=== PATIENT | female | born 1985 | race Caucasian/White ===

== ENCOUNTER 2025-05-20 12:01 | Emergency (ER) | payer BC ==
--- OUTSIDE RECORDS SUMMARY | 2025-05-20 12:07 | XMS REPORT | Continuity of Care Document ---
Author Name Unknown Address [address] [facility] [address] [place] [address] [facility] [place] Address [address] [facility] [place] [address] Care Team Providers Care Thread Laster Name Role Phone Julio JEAN BAPTISTE, Nathan Hernandez Primary Care Physician Megan Arita Attending Clinician Unavailable Arun Slaughter Attending Clinician UnavailMena Camacho Attending Clinician Unavaila Monica Mejía APRN Attending Clinician Unavail able DOLLY GREGORIO Attending Clinician Unavailable Only, Ang Db Test Attending Clinician Unavailabl e Ebrahim [facility] [employer] CONSULTANTDolly Fitzgerald Attending Clinician [phone] MILAGRO IRENE Attending Clinician Unavailable BRIANDA Attending Clinician Unavailab Milagro Dave Attending Clinician [phone] SHAHNAZ VIERA Attending Clinician UnavailShahnaz Whelan Attending Clinician [phone] Nahum Candelaria Attending Clinician + [phone] NAHUM WHEAT Attending Clinician Unavailab Dimas [facility] Attending Clinician UnavailAmy Kurtz MD Attending Clinician [phone] AMY JAMES Attending Clinician Unavailable Doctor Unassigned, [place] Attending Clinician U Mena Garcia Admitting Clinician Unavaila olman LAMAR Admitting Clinician Unavailab le Payers Payer Name Policy Type Policy Number Effective Date Expiration Date Source [place] [address] [id number] [facility] [id number] 2020 00:00:00 Problems Condition Name Condition Details Condition Category Status Onset Date Resolution Date Last Treatment Date Treating Clinician Comments Source Chronic gastric ulcer without hemorrhage AND without perforatio n Chronic Gastric Ulcer without Hemorrhage and without Perforatio n Problem Active 7- 00:00: 00 [facility] Abnormal uterine bleeding Abnormal Uterine Bleeding Problem Active 6-20 00:00: 00 [facility] 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 omatous Stromal Hyperplasi a of Breast Problem Active 6-04 00:00: 00 [facility] Venous embolism Venous Embolism Problem Active 5-23 00:00: 00 [facility] Menorrhagi a Menorrhagi a Problem Active 5-23 00:00: 00 [facility] Inconclusi ve mammograph y finding Inconclusi ve Mammograph y Finding Problem Active 3-27 00:00: 00 [facility] Pelvic and perineal pain Pelvic and Perineal Pain Problem Active 3-27 00:00: 00 [facility] Pain in pelvis Pain in Pelvis Problem Active 3-03 00:00: 00 [facility] Mammograph y abnormal Mammograph y Abnormal Problem Active 9-12 00:00: 00 [facility] Anxiety Anxiety Problem Active 9- 00:00: 00 [facility] Depressive disorder Depressive Disorder Problem Active 9- 00:00: 00 [facility] Hypertensi ve disorder Hypertensi ve Disorder Problem Active 9- 00:00: 00 [facility] Asthma Asthma Problem Active 9- 00:00: 00 [facility] Irritable bowel syndrome Irritable Bowel Syndrome Problem Active 9- 00:00: 00 [facility] Rheumatoid arthritis Rheumatoid Arthritis Problem Active 06-23 00:00: 00 [facility] Fibromyalg ia Fibromyalg ia Problem Active 06-23 00:00: 00 [facility] Polycystic ovary syndrome Polycystic Ovary Syndrome Problem Active 06-23 00:00: 00 [facility] Charles thyroiditi s Charles Thyroiditi s Problem Active 06-23 00:00: 00 [facility] Hyperlipid emia Hyperlipid emia Problem Active 06-23 00:00: 00 [facility] Body mass index 30+ - obesity Body Mass Index 30+ - Obesity Problem Active 06-04 00:00: 00 [facility] Essential hypertensi on Essential Hypertensi on Problem Active 06-04 00:00: 00 [facility] Dysmenorrh ea Dysmenorrh ea Problem Active 06-04 00:00: 00 [facility] Premenstru al dysphoric disorder Premenstru al Dysphoric Disorder Problem Active 06-04 00:00: 00 [facility] Excessive and frequent menstruati on Excessive and Frequent Menstruati on Problem Active 06-04 00:00: 00 [facility] 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 Problem [facility] Altered consciousn ess Transient alteration of awareness Problem [facility] 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 Problem [facility] Occipital neuralgia Occipital neuralgia Problem [facility] Hand joint pain Pain in joints of left hand Problem [facility] [id number] Anemia due to vitamin B12 deficiency , unspecifie d B12 deficiency type Problem [facility] Joint pain Pain in unspecifie d joint Problem [facility] Vitamin D deficiency Vitamin D deficiency , unspecifie d Problem [facility] Pain in right knee Pain in right knee Problem [facility] Disorienta tion Disorienta tion, unspecifie d Problem [facility] Visual Disturbanc e Other visual disturbanc es Problem [facility] 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 Problem [facility] Tremor Tremor, unspecifie d Problem [facility] Lesion of ulnar nerve Lesion of ulnar nerve, unspecifie d upper limb Problem [facility] Polyneurop athy Polyneurop athy in diseases classified elsewhere Problem [facility] COVID-19, virus not identified COVID-19, virus not identified Problem [facility] Dizziness Dizziness Problem [facility] Essential (primary) hypertensi on Essential (primary) hypertensi on Problem [facility] Cervical radiculopa thy Cervical radiculopa thy Problem [facility] Gastritis Gastritis Problem [facility] Cluster headache syndrome Cluster headache syndrome, unspecifie d, intractabl e Problem [facility] Chronic migraine without aura, intractabl e, without status migrainosu s Chronic migraine without aura, intractabl e, without status migrainosu s Problem [facility] Chronic pain Other chronic pain Problem [facility] Insomnia Insomnia due to medical condition Problem [facility] Trigeminal neuralgia Trigeminal neuralgia Problem [facility] Malaise Other malaise Problem [facility] Carpal tunnel syndrome Carpal tunnel syndrome, unspecifie d upper limb Problem [facility] Cervical spondylosi s without myelopathy Spondylosi s without myelopathy or radiculopa thy, occipito-a tlanto-axi al region Problem [facility] Rheumatoid arthritis of multiple sites with negative rheumatoid factor Rheumatoid arthritis of multiple sites with negative rheumatoid factor Problem [facility] Migraine with aura Migraine with aura, not intractabl e, without status migrainosu s Problem [facility] Obesity Obesity Problem [facility] Body mass index 40+ - severely obese Body mass index [BMI] 40.0-44.9, adult Problem [facility] Antineopla stic chemothera py regimen Encounter for antineopla stic immunother apy Problem [facility] White matter disease White matter disease, unspecifie d Problem [facility] Pernicious anemia Vitamin B12 deficiency anemia due to intrinsic factor deficiency Problem [facility] Cervical radiculopa thy Radiculopa thy, cervical region Problem [facility] Disorder of spinal region Other specified dorsopathi es, occipito-a tlanto-axi al region Problem [facility] Chronic fatigue syndrome Chronic fatigue, unspecifie d Problem [facility] Displaceme nt of cervical interverte bral disc without myelopathy Other cervical disc displaceme nt, unspecifie d cervical region Problem [facility] Amnesia Other amnesia Problem [facility] Demyelinat ing disease of central nervous system Demyelinat ing disease of central nervous system, unspecifie d Problem [facility] Allergies, Adverse Reactions, Alerts Allergy Name Allergy Type Status Severity Reaction(s) Onset Date Inactive Date Treating Clinician Comments Source NO KNOWN ALLERGIE S Drug Class Active [facility] Social History Social Habit Start Date Stop Date Quantity Comments Source History of Tobacco Use [facility] Sex Assigned At [facility] Exposure to SARS-CoV-2 (event) 2022-06-06 00:00:00 2022-06-16 17:22:00 Yes [facility] Smoking Status Start Date Stop Date Source Never Smoker [facility] Tobacco smoking consumption unknown [facility] Medications Ordered Medication Name Filled Medication Name Start Date Stop Date Current Medication? Ordering Clinician Indication Dosage Frequency Signature (SIG) Comments Components Source Topiramate 25 MG Topiramate 25 MG 04-18 00:00: 00 No 2{table ts} QD Topiramate 25 MG Qulipta 60 MG Qulipta 60 MG 04-18 00:00: 00 No 1{table t} QD Qulipta 60 MG Ubrelvy 100 MG Ubrelvy 100 MG 17 00:00: 00 No Ubrelvy 100 MG Eliquis 5 MG Eliquis 5 MG -12 00:00: 00 No Eliquis 5 MG Eliquis 5 mg tablet 10 mg every day by oral route. Eliquis 5 mg tablet 10 mg every day by oral route. 08 00:00: 00 No 10mg Q1D Eliquis 5 mg tablet 10 mg every day by oral route. [facility] Butalbital- APAP-Caffei ne 50-325-40 MG Butalbital- APAP-Caffei ne 50-325-40 MG - 00:00: 00 No QID Butalbital -APAP-Caff eine 50-325-40 MG pantoprazol e 40 mg tablet,rekha yed release - 00:00: 00 Yes 1mg Israel F Bharath triamterene 37.5 mg-hydrochl orothiazide 25 mg tablet - 00:00: 00 Yes 1mg Israel Sinha Ubrelvy 100 mg tablet 12-19 00:00: 00 Yes 2mg [facility] Sinha Topamax 50 mg tablet 12-19 00:00: 00 Yes 2mg [facility] Sinha meclizine 12.5 mg tablet 12-19 00:00: 00 Yes 1mg [facility] Sinha dicyclomine 20 mg tablet 12-19 00:00: 00 Yes 1mg Israel Sinha levothyroxi ne 50 mcg tablet 12-19 00:00: 00 Yes 1mcg Israel Sinha fluticasone propionate 50 mcg/actuati on nasal spray,suspe nsion 12-19 00:00: 00 Yes 1mcg/ac tuation Israel Sinha azelastine 137 mcg-flutica sone 50 mcg/spray nasal spray 12-19 00:00: 00 Yes 1mcg/sp ray Israel Sinha lutein 6 mg capsule 12-19 00:00: 00 Yes 1mg Israel Sinha fenofibrate 50 mg capsule 12-19 00:00: 00 Yes 1mg Israel Sinha zaleplon 10 mg capsule 12-19 00:00: 00 Yes mg Israel Sinha Arnuity Ellipta 200 mcg/actuati on powder for inhalation 12-19 00:00: 00 Yes 1mcg/ac tuation Israel Sinha albuterol sulfate HFA 90 mcg/actuati on aerosol inhaler 12-19 00:00: 00 Yes 1mcg/ac tuation Israel Sinha meloxicam 15 mg tablet 12-19 00:00: 00 Yes 1mg Israel Sinha fluoxetine 10 mg capsule 12-12 00:00: 00 Yes mg Israel Sinha Dicyclomine HCl 20 MG Dicyclomine HCl 20 MG 3- 00:00: 00 No 1{table t} TID Dicyclomin e HCl 20 MG losartan 50 mg tablet 2- 00:00: 00 Yes mg Israel Sinha topiramate 25 mg tablet 2025-0 2-19 00:00: 00 Yes mg Israel Sinha montelukast 10 mg tablet 2-12 00:00: 00 Yes mg Israel Sinha armodafinil 250 mg tablet 1-23 00:00: 00 Yes 1mg Israel Sinha armodafinil 250 mg tablet 2023-10 1-20 00:00: 00 Yes mg Israel Sinha Meloxicam 15 MG Meloxicam 15 MG 9-04 00:00: 00 No QD Meloxicam 15 MG meloxicam submicroniz ed 10 mg capsule 15 mg as needed by oral route. meloxicam submicroniz ed 10 mg capsule 15 mg as needed by oral route. 8-15 00:00: 00 No 15mg meloxicam submicroni zed 10 mg capsule 15 mg as needed by oral route. [facility] Meclizine HCl 12.5 MG Meclizine HCl 12.5 MG 5-24 00:00: 00 No 1{table t_as_ne eded} Meclizine HCl 12.5 MG Pantoprazol e Sodium 40 MG Pantoprazol e Sodium 40 MG 2019-10 1-16 00:00: 00 No 1{table t} QD Pantoprazo le Sodium 40 MG acetaminoph en 300 mg-codeine 30 mg tablet Take 1 tablet every 6 hours by oral route for 2 days, for take 1 tablet 1 hr prior to procedure and then every 6 hrs after as needed. acetaminoph en 300 mg-codeine 30 mg tablet Take 1 tablet every 6 hours by oral route for 2 days, for take 1 tablet 1 hr prior to procedure and then every 6 hrs after as needed. No 1 Q6H acetaminop hen 300 mg-codeine 30 mg tablet Take 1 tablet every 6 hours by oral route for 2 days, for take 1 tablet 1 hr prior to procedure and then every 6 hrs after as needed. [facility] Plaquenil 200 mg tablet 400 mg every day by oral route. Plaquenil 200 mg tablet 400 mg every day by oral route. No 400mg Q1D Plaquenil 200 mg tablet 400 mg every day by oral route. [facility] ketorolac 30 mg/mL (1 mL) injection solution Inject 1 mL every 6 hours by intramuscul ar route. ketorolac 30 mg/mL (1 mL) injection solution Inject 1 mL every 6 hours by intramuscul ar route. No 1mL Q6H ketorolac 30 mg/mL (1 mL) injection solution Inject 1 mL every 6 hours by intramuscu lar route. [facility] albuterol sulfate HFA 90 mcg/actuati on aerosol inhaler albuterol sulfate HFA 90 mcg/actuati on aerosol inhaler No albuterol sulfate HFA 90 mcg/actuat ion aerosol inhaler [facility] armodafinil 250 mg tablet armodafinil 250 mg tablet No armodafini l 250 mg tablet [facility] Arnuity Ellipta 200 mcg/actuati on powder for inhalation Arnuity Ellipta 200 mcg/actuati on powder for inhalation No Arnuity Ellipta 200 mcg/actuat ion powder for inhalation [facility] butalbital- acetaminoph en-caffeine 50 mg-325 mg-40 mg tablet butalbital- acetaminoph en-caffeine 50 mg-325 mg-40 mg tablet No butalbital -acetamino phen-caffe ine 50 mg-325 mg-40 mg tablet [facility] Co Q-10 Co Q-10 No Co Q-10 P [facility] fenofibrate 160 mg tablet fenofibrate 160 mg tablet No fenofibrat e 160 mg tablet [facility] fluoxetine 10 mg capsule TAKE 1 CAPSULE BY MOUTH EVERY DAY fluoxetine 10 mg capsule TAKE 1 CAPSULE BY MOUTH EVERY DAY No fluoxetine 10 mg capsule TAKE 1 CAPSULE BY MOUTH EVERY DAY [facility] iron iron No iron [facility] losartan 50 mg tablet losartan 50 mg tablet No losartan 50 mg tablet [facility] magnesium magnesium No magnesium [facility] meclizine 12.5 mg tablet Take 1 tablet as needed by oral route. meclizine 12.5 mg tablet Take 1 tablet as needed by oral route. No 1 meclizine 12.5 mg tablet Take 1 tablet as needed by oral route. [facility] montelukast 10 mg tablet montelukast 10 mg tablet No montelukas t 10 mg tablet [facility] [place] 3 [place] 3 No [place] 3 P [facility] pantoprazol e 40 mg tablet,rekha yed release once a daily for 3 month pantoprazol e 40 mg tablet,rekha yed release once a daily for 3 month No pantoprazo le 40 mg tablet,del ayed release once a daily for 3 month [facility] Qulipta 60 mg tablet Qulipta 60 mg tablet No Qulipta 60 mg tablet [facility] rosuvastati n 5 mg tablet rosuvastati n 5 mg tablet No rosuvastat in 5 mg tablet [facility] Trelegy Ellipta 200 mcg-62.5 mcg-25 mcg powder for inhalation Trelegy Ellipta 200 mcg-62.5 mcg-25 mcg powder for inhalation No Trelegy Ellipta 200 mcg-62.5 mcg-25 mcg powder for inhalation [facility] Ubrelvy 100 mg tablet Ubrelvy 100 mg tablet No Ubrelvy 100 mg tablet [facility] vitamin B complex vitamin B complex No vitamin B complex [facility] Vitamin D Vitamin D No Vitamin D [facility] vitamin E vitamin E No vitamin E [facility] zaleplon 10 mg capsule zaleplon 10 mg capsule No zaleplon 10 mg capsule [facility] dicyclomine dicyclomine No di cyclomin e [facility] Slow Fe 142 (45 Fe) MG Slow Fe 142 (45 Fe) MG No 1{table t} QD Slow Fe 142 (45 Fe) MG Montelukast Sodium 10 MG Montelukast Sodium 10 MG No 1{table t_in_th e_eveni ng} QD Montelukas t Sodium 10 MG Zaleplon 10 MG Zaleplon 10 MG No 1{capsu le_at_b edtime_ as_need ed} QD Zaleplon 10 MG Vitamin B-2 25 MG Vitamin B-2 25 MG No 1{table t_with_ a_meal} QD Vitamin B-2 25 MG Losartan Potassium 50 MG Losartan Potassium 50 MG No 1{table t} QD Losartan Potassium 50 MG Xyrem 500 MG/ML Xyrem 500 MG/ML No 6{ml_at _bedtim e} Xyrem 500 MG/ML Promethazin e HCl 25 MG Promethazin e HCl 25 MG No 1{table t_as_ne eded} QID Promethazi ne HCl 25 MG Hydroxychlo roquine Sulfate 200 MG Hydroxychlo roquine Sulfate 200 MG No Hydroxychl oroquine Sulfate 200 MG Synthroid 25 MCG Synthroid 25 MCG No QD Synthroid 25 MCG Methocarbam ol 500 MG Methocarbam ol 500 MG No 1{table t} Methocarba mol 500 MG Cimzia 2 X 200 MG Cimzia 2 X 200 MG No Cimzia 2 X 200 MG Armodafinil 200 MG Armodafinil 200 MG No 1{table t_in_ e_edel ng} QD Armodafini l 200 MG Rosuvastati n Calcium 10 MG Rosuvastati n Calcium 10 MG No Rosuvastat in Calcium 10 MG Fenofibrate 160 MG Fenofibrate 160 MG No Fenofibrat e 160 MG Vital Signs Vital Name Observation Time Observation Value Comments S ource BP Systolic 2025-05-10 00:00:00 127 mm[Hg] [facility] Height 2025-05-10 00:00:00 63 [in_i] [facility] Body Weight 2025-05-10 00:00:00 224 [lb_av] [facility] BP Diastolic 2025-05-10 00:00:00 92 mm[Hg] [facility] BMI (Body Mass Index) 2025-05-10 00:00:00 39.7 kg/m2 [facility] BP Diastolic 2025-03-22 00:00:00 82 mm[Hg] [facility] BP Systolic 2025-03-22 00:00:00 148 mm[Hg] [facility] BMI (Body Mass Index) 2025-03-22 00:00:00 39.7 kg/m2 [facility] Body Weight 2025-03-22 00:00:00 224 [lb_av] [facility] Height 2025-03-22 00:00:00 63 [in_i] [facility] Height 2025-02-22 00:00:00 63 [in_i] [facility] BMI (Body Mass Index) 2025-02-22 00:00:00 39.7 kg/m2 [facility] BP Diastolic 2025-02-22 00:00:00 80 mm[Hg] [facility] BP Systolic 2025-02-22 00:00:00 144 mm[Hg] [facility] Body Weight 2025-02-22 00:00:00 224 [lb_av] [facility] height 2024-12-06 15:30:00 62 [in_i] [facility] weight-kg 2024-12-06 15:30:00 102.47 kg [facility] bmi 2024-12-06 15:30:00 41.31 kg/m2 [facility] temperature 2024-12-06 15:30:00 98.1 [degF] [facility] respiratory rate 2024-12-06 15:30:00 16 /min [facility] heart rate 2024-12-06 15:30:00 72 /min [facility] blood pressure systolic 2024-12-06 15:30:00 125 mm[Hg] [facility] blood pressure diastolic 2024-12-06 15:30:00 91 mm[Hg] [facility] Height 2024-12-03 00:00:00 63 [in_i] [facility] Body Weight 2024-12-03 00:00:00 224 [lb_av] [facility] BP Systolic 2024-12-03 00:00:00 159 mm[Hg] [facility] BMI (Body Mass Index) 2024-12-03 00:00:00 39.7 kg/m2 [facility] BP Diastolic 2024-12-03 00:00:00 84 mm[Hg] [facility] height 2024-11-12 15:00:00 62 [in_i] [facility] weight-kg 2024-11-12 15:00:00 100.24 kg [facility] bmi 2024-11-12 15:00:00 40.42 kg/m2 [facility] temperature 2024-11-12 15:00:00 96.9 [degF] [facility] respiratory rate 2024-11-12 15:00:00 16 /min [facility] heart rate 2024-11-12 15:00:00 112 /min [facility] blood pressure systolic 2024-11-12 15:00:00 164 mm[Hg] [facility] blood pressure diastolic 2024-11-12 15:00:00 124 mm[Hg] [facility] height 2024-11-08 15:15:00 62 [in_i] [facility] weight-kg 2024-11-08 15:15:00 101.97 kg [facility] bmi 2024-11-08 15:15:00 41.11 kg/m2 [facility] temperature 2024-11-08 15:15:00 98.3 [degF] [facility] respiratory rate 2024-11-08 15:15:00 16 /min [facility] heart rate 2024-11-08 15:15:00 83 /min [facility] blood pressure systolic 2024-11-08 15:15:00 136 mm[Hg] [facility] blood pressure diastolic 2024-11-08 15:15:00 91 mm[Hg] [facility] height 2024-10-08 15:30:00 62 [in_i] [facility] weight-kg 2024-10-08 15:30:00 101.97 kg [facility] bmi 2024-10-08 15:30:00 41.11 kg/m2 [facility] temperature 2024-10-08 15:30:00 97.7 [degF] [facility] respiratory rate 2024-10-08 15:30:00 16 /min [facility] heart rate 2024-10-08 15:30:00 75 /min [facility] blood pressure systolic 2024-10-08 15:30:00 148 mm[Hg] [facility] blood pressure diastolic 2024-10-08 15:30:00 96 mm[Hg] [facility] height 2024-09-05 15:30:00 62 [in_i] [facility] weight-kg 2024-09-05 15:30:00 102.51 kg [facility] bmi 2024-09-05 15:30:00 41.33 kg/m2 [facility] temperature 2024-09-05 15:30:00 97.1 [degF] [facility] respiratory rate 2024-09-05 15:30:00 16 /min [facility] heart rate 2024-09-05 15:30:00 82 /min [facility] blood pressure systolic 2024-09-05 15:30:00 123 mm[Hg] [facility] blood pressure diastolic 2024-09-05 15:30:00 86 mm[Hg] [facility] height 2024-08-08 15:30:00 62 [in_i] [facility] weight-kg 2024-08-08 15:30:00 104.33 kg [facility] bmi 2024-08-08 15:30:00 42.06 kg/m2 [facility] temperature 2024-08-08 15:30:00 96.9 [degF] [facility] heart rate 2024-08-08 15:30:00 86 /min [facility] blood pressure systolic 2024-08-08 15:30:00 146 mm[Hg] [facility] blood pressure diastolic 2024-08-08 15:30:00 92 mm[Hg] [facility] height 2024-07-04 15:30:00 62 [in_i] [facility] weight-kg 2024-07-04 15:30:00 103.42 kg [facility] bmi 2024-07-04 15:30:00 41.7 kg/m2 [facility] heart rate 2024-07-04 15:30:00 74 /min [facility] blood pressure systolic 2024-07-04 15:30:00 123 mm[Hg] [facility] blood pressure diastolic 2024-07-04 15:30:00 80 mm[Hg] [facility] BP Systolic 2024-06-29 00:00:00 125 mm[Hg] [facility] Body Weight 2024-06-29 00:00:00 230.8 [lb_av] [facility] BP Diastolic 2024-06-29 00:00:00 62 mm[Hg] [facility] BMI (Body Mass Index) 2024-06-29 00:00:00 40.9 kg/m2 [facility] Height 2024-06-29 00:00:00 63 [in_i] [facility] height 2024-06-06 15:45:00 62 [in_i] [facility] weight-kg 2024-06-06 15:45:00 103.42 kg [facility] bmi 2024-06-06 15:45:00 41.7 kg/m2 [facility] temperature 2024-06-06 15:45:00 97.5 [degF] [facility] respiratory rate 2024-06-06 15:45:00 16 /min [facility] heart rate 2024-06-06 15:45:00 81 /min [facility] blood pressure systolic 2024-06-06 15:45:00 124 mm[Hg] [facility] blood pressure diastolic 2024-06-06 15:45:00 82 mm[Hg] [facility] height 2024-05-03 15:00:00 62 [in_i] [facility] weight-kg 2024-05-03 15:00:00 103.06 [facility] 2024-05-03 15:00:00 41.55 [facility]24-05-03 15:00:00 97.5 [degF] [facility] respiratory rate 2024-05-03 15:00:00 16 /min [facility] heart rate 2024-05-03 15:00:00 96 /min [facility] systolic 2024-05-03 15:00:00 132 mm[Hg] [facility] blood pressure diastolic 2024-05-03 15:00:00 80 mm[Hg] [facility] height 2024-04-03 15:30:00 62 [in_i] [facility] 2024-04-03 15:30:00 104.24 kg [facility] bmi 2024-04-03 15:30:00 42.03 kg/m2 [facility] 2024-04-03 15:30:00 97.2 [degF] [facility] respiratory rate 2024-04-03 15:30:00 16 /min [facility] heart rate 2024-04-03 15:30:00 100 /min [facility] blood pressure systolic 2024-04-03 15:30:00 158 mm[Hg] [facility] blood pressure diastolic 2024-04-03 15:30:00 93 mm[Hg] [facility] Res[facility] Rate 2024-12-19 09:08:00 19.00 /min [facility] Mary Sinha BP Systolic 2024-12-19 09:08:00 124 mm[Hg] [facility] Mary Sinha BP Diastolic 2024-12-19 09:08:00 83 mm[Hg] Alfredito phen Mary [facility] Weight Measured 2024-12-19 09:08:00 223.60 pounds Israel Mayr Sinha Height Measured 2024-12-19 09:08:00 63.07 inches [place] Mary Sinha Body Temperature 2024-12-19 09:08:00 98.40 degrees [place] Mary Sinha Heart Rate 2024-12-19 09:08:00 80.00 /min Sarina en Mary Sinha Procedures Procedure Date / Time Performed Performing Clinicia n Source MAMMO, screening, digital, bilateral 2025-03-06 00:00:00 [facility] US TRANSVAGINAL 2024-12-07 00:00:00 [facility] MAMMO, diagnostic, digital, unilateral 2024-06-29 00:00:00 [facility] US, breast, unilateral 2024-06-29 00:00:00 [facility] MAMMO, diagnostic, digital, bilateral 2024-06-18 00:00:00 [facility] MAMMO, diagnostic, tomosynthesis, unilateral 2024-06-14 00:00:00 [facility] US, breast, bilateral 2024-06-14 00:00:00 [facility] unlisted imaging order 2024-06-12 00:00:00 [facility] Tonsillectomy [facility] Encounters Start Date/Time End Date/Time Encounter Type Admission Type Attending Clinicians Care Facility Care Department Encounter ID Source 2024-12-06 17:08:00 Outpatient [facility]rit[facility] [id number] [facility] 2024-04-03 15:30:02 Outpatient Megan Arita [facility] [id number] [facility] 2025-05-10 00:00:00 2025-05-10 00:00:00 Mena Nunez MD: Tyree Lemus, [address], [place] [id number] , Ph. [facility] - GC_GCBZW_Fern schafer Thanh* [id number] [facility] 2025-04-02 00:00:00 2025-04-02 00:00:00 Mena Nunez MD: Tyree Lemus, [address], [place] [address] , Ph. [facility] - GC_GCBZW_Fern schafer Thanh* [id number] [facility] 2025-03-22 00:00:00 2025-03-22 00:00:00 Mena Nunez MD: Tyree Lemus, [address], [place] [phone] , Ph. [facility] - GC_GCBZW_Md hanh Thanh* [id number] [facility] 2025-03-19 08:56:00 2025-03-19 08:56:00 Outpatient Arun Harmon [facility] [id number] [facility] 2025-03-06 00:00:00 2025-03-06 00:00:00 EUNICE Vernon: [address], [address], [place] [address] , Ph. [facility] - [facility]* [id number] [facility] 2025-02-22 00:00:00 2025-02-22 00:00:00 Mena Nunez MD: [address], [address], [place] [address] , Ph. [facility] - [facility]* [id number] [facility] 2025-01-17 08:00:00 2025-01-17 08:00:00 Outpatient Mena Zee [facility] [id number] [facility] 2024-12-25 08:00:00 2024-12-25 08:00:00 Outpatient Mena Zee [facility] [id number] [facility] 2024-12-25 08:00:00 2024-12-25 08:00:00 Outpatient Monica Valenzuela [facility] [id number] [facility] 2024-12-19 08:52:55 2024-12-19 08:52:55 Outpatient SFA SFA [id number] Israel Sinha 2024-12-19 00:00:00 2024-12-19 00:00:00 Outpatient Visit SFA SFA [id number] Israel Sinha 2024-12-07 00:00:00 2024-12-07 00:00:00 Mena Nunez MD: [address], [address], [place] [phone] , Ph. [facility] - [facility]* [id number] [facility] 2024-12-06 00:00:00 2024-12-06 00:00:00 Office Visit- Est Pt.- Level 3 CLS CLS [id number] [facility] 2024-12-03 00:00:00 2024-12-03 00:00:00 Daisy Aguilar, [employer] CON[employer]ANT: [address], [address], [place] [address] , Ph. [facility] - [facility]* [id number] [facility] 2024-11-27 00:00:00 2024-11-27 00:00:00 (WEB) CLS CLS [id number] [facility] 2024-11-14 00:00:00 2024-11-14 00:00:00 (WEB) CLS CLS [id number] [facility] 2024-11-12 00:00:00 2024-11-12 00:00:00 Office Visit- Est Pt.- Level 4 CLS CLS [id number] [facility] 2024-11-08 00:00:00 2024-11-08 00:00:00 Office Visit- Est Pt.- Level 3 CLS CLS [id number] [facility] 2024-11-06 00:00:00 2024-11-06 00:00:00 (WEB) CLS CLS [id number] [facility] 2024-10-29 00:00:00 2024-10-29 00:00:00 (WEB) CLS CLS [id number] [facility] 2024-10-29 00:00:00 2024-10-29 00:00:00 (WEB) CLS CLS [id number] [facility] 2024-10-08 00:00:00 2024-10-08 00:00:00 Office Visit- Est Pt.- Level 4 CLS CLS [id number] [facility] 2024-10-06 00:00:00 2024-10-06 00:00:00 (WEB) CLS CLS [id number] [facility] 2024-09-19 00:00:00 2024-09-19 00:00:00 (WEB) CLS CLS [id number] [facility] 2024-09-18 00:00:00 2024-09-18 00:00:00 (WEB) CLS CLS [id number] [facility] 2024-09-10 00:00:00 2024-09-10 00:00:00 Office Visit- Est Pt.- Level 3 CLS CLS [id number] [facility] 2024-09-05 00:00:00 2024-09-05 00:00:00 Office Visit- Est Pt.- Level 4 CLS CLS [id number] [facility] 2024-08-08 00:00:00 2024-08-08 00:00:00 Office Visit- Est Pt.- Level 4 CLS CLS [id number] [facility] 2024-08-07 00:00:00 2024-08-07 00:00:00 (TEL) CLS CLS [id number] [facility] 2024-08-06 00:00:00 2024-08-06 00:00:00 (WEB) CLS CLS [id number] [facility] 2024-07-04 00:00:00 2024-07-04 00:00:00 Office Visit- Est Pt.- Level 3 CLS CLS [id number] [facility] 2024-06-29 00:00:00 2024-06-29 00:00:00 EUNICE Vernon: [address] [place] [address] Dr [address], [address], [place] [address] , Ph. [facility] - [facility]* [id number] [facility] 2024-06-25 08:00:00 2024-06-25 08:00:00 [facility] [id number] [facility] 2024-06-13 08:00:00 2024-06-13 08:00:00 Outpatient Mena Zee [facility] [id number] [facility] 2024-06-07 00:00:00 2024-06-07 00:00:00 (WEB) CLS CLS [id number] [facility] 2024-06-06 00:00:00 2024-06-06 00:00:00 Office Visit- Est Pt.- Level 4 CLS CLS [id number] [facility] 2024-05-12 00:00:00 2024-05-12 00:00:00 (WEB) CLS CLS [id number] [facility] 2024-05-05 00:00:00 2024-05-05 00:00:00 (WEB) CLS CLS [id number] [facility] 2024-05-05 00:00:00 2024-05-05 00:00:00 (WEB) CLS CLS [id number] [facility] 2024-05-03 00:00:00 2024-05-03 00:00:00 Office Visit- Est Pt.- Level 2 CLS CLS [id number] [facility] 2024-04-20 00:00:00 2024-04-20 00:00:00 (WEB) CLS CLS [id number] [facility] 2024-04-03 00:00:00 2024-04-03 00:00:00 Office Visit- Est Pt.- Level 4 CLS CLS [id number] [facility] 2022-06-16 17:45:00 2022-06-16 18:23:58 Outpatient DOLLY HENDRIX [facility] [id number] [facility] 2022-06-16 17:45:00 2022-06-16 18:00:00 Laboratory Only Only, Ang Db Dolly Weiss [facility] [id number] 350.1.13.10 4.2.7.2.686 [id number] [facility] 2022-06-16 17:15:00 2022-06-16 17:15:00 Outpatient DOLLY HENDRIX [facility] [id number] [facility] 2022-06-16 17:00:00 2022-06-16 17:00:00 Outpatient MILAGRO CABRERA [facility] [id number] [facility] 2022-03-04 11:15:00 2022-03-04 11:30:00 Laboratory Only Only, Ang Db Test Milagro Irene [facility] 1.84.114 350.1.13.10 4.2.7.2.686 [id number] [facility] 2022-03-04 11:15:00 2022-03-04 11:20:26 Outpatient R MILAGRO IRENE [facility] [id number] [facility] 2021-10-28 13:00:00 2021-10-28 13:04:16 Outpatient R SHAHNAZ VIERA [facility] [id number] [facility] 2021-10-28 13:00:00 2021-10-28 13:04:16 Laboratory Only Only, Ang Db Test Martina Vieratany [facility] MED[facility] OFF[facility] BUILD[facility] 1.840.114 350.1.13.10 4.2.7.2.686 [id number] [facility] 2021-10-09 12:30:00 2021-10-09 13:07:53 Outpatient R SHAHNAZ VIERA [facility] [id number] [facility] 2021-10-09 12:30:00 2021-10-09 12:45:00 Laboratory Only Only, Ang Db Test Martina Veiratany [facility] BU[facility] 1.840.114 350.1.13.10 4.2.7.2.686 [id number] [facility] 2021-06-30 11:31:04 2021-06-30 11:46:04 Laboratory Only Only, Ang Db Test Kierra Nahum J [facility] Srinath?[facility] Medical Office Building 1.840.114 350.1.13.10 4.2.7.2.686 [id number] [facility] 2021-06-30 11:30:00 2021-06-30 11:30:00 Outpatient Luis NAHUM WHETA [facility] [id number] [facility] 2021-05-04 16:43:27 2021-05-04 17:03:27 Laboratory Only Lab, [facility] Bry Matt [facility] Building One ..840.114 350.1.13.10 4.2.7.2.686 [id number] [facility] 2021-05-04 17:00:00 2021-05-04 17:00:00 Outpatient Lusi JAMES [facility] [id number] [facility] 2021-05-04 00:00:00 2021-05-04 00:00:00 Letter (Out) Doctor Unassigned, [place] [id number] 350.1.13.10 4.2.7.2.686 [id number] [facility] 2021-05-04 00:00:00 2021-05-04 00:00:00 Letter (Out) Doctor Unassigned, [place] [id number] 350.1.13.10 4.2.7.2.686 [id number] [facility] Results Test Description Test Time Test Comments Results Result Co mments Source [facility] [id number] 11:00:28* Test Item Value Reference Range Interpretation Comme nts HCG (test code = HCG) negative [facility]oll[facility]ropin [Units/volume] in Serum or [id number] 00:00:00* Test Item Value Reference Range Interpretation Comme nts Follitropin [Units/volume] i n Serum or Plasma (test code = 82982-4) 2.3 mIU/mL [facility]stradiol (E2) [Mass/volume] in Serum or [id number] 00:00:00 * Test Item Value Reference Range Interpretation Comme nts Estradiol (E2) [Mass/volume] in Serum or Plasma (test code = 2243-4) 71 pg/mL Jean Pierre [id number] 13:15:00* Test Item Value Reference Range Interpretation Comments SURGICAL (test code = SR) RUN DATE: 01/21/25 [facility] PAGE 1 RUN TIME: 1315 Specimen Inquiry RUN USER: INTERFACE PATIENT: RALPH DESHPANDE LOC: [facility] U #: [id number] AGE/SX: 39/F ROOM: RE01/17/25REG DR: Mena Nunez MD : 84 BED: DIS: STATUS: PRE REF TLOC: SPEC #: [id number] RECD: 01/18/25 STATUS: SOUT REQ #: [id number] JAKE: 01/17/25- SUBM DR: Tori Aguilera MD ENTERED: 01/18/25 SP TYPE: SURGICAL OTHR DR: ORDERED: [id number], ANATOMIC SPEC PROCEDURES: 45477 (01/18/25) TISSUES: A. BREAST BIOPSY, FEMALE LEFT CLINICAL HISTORY SAME FINAL DIAGNOSIS Left breast, 3:00, 14 cm from nipple, core biopsy: - Pseudoangiomatous stromal hyperplasia. GROSS DESCRIPTION Received in formalin labeled "left breast 3:00, 14 cm FN" are multiple yellow-whitefibroadipose tissue cores measuring up to 2.7 cm in length submitted in toto in cassettesA-B. Excised Time: 1456 Time in formalin: 1459Cold Ischemic Time: 3 minutesFixation Duration: 18 hours Technical component performed at [facility],[address] [place] [address], [place] [address] Unless gross only, the diagnosis is based upon microscopic examination.Immunohistochemistry: This test was developed and its performance characteristicsdetermined by this laboratory. It has not been approved nor does it need approvalby the [place] FDA. Appropriate positive and negative controls are reviewed and judgedto be acceptable for performedimmunohistochemistry and/or special stains. This laboratoryis certified under the Clinical Laboratory Improvement Amendments (CLIA-88) as qualified toperform high complexity clinical laboratory testing. CONTINUED ON NEXT PAGE RUN DATE: 01/21/25 [facility] PAGE 2 RUN TIME: 1315 Specimen Inquiry RUN USER: INTERFACE SPEC #: [id number] PATIENT: JERAMYRALPH #[id number] (Continued) - CLINICAL INFORMATION AREA OF TISSUE ? PASH R/O CARCINOMA Signed Igor Mars 01/21/25 1315 END OF REPORT VITAMIN B12/FOLATE, SERUM PANEL (2470)2024-09-21 00:00:00* Test Item Value Reference Range Interpretation Comme nts ABSOLUTE BASOPHILS (test code = 14628825) 26 cells/uL See_Comment N [Automated [employer] ge] The system which generated this result transmitted reference range: 0-200 cells/uL. The reference range was not used to interpret this result as normal/abnormal. ABSOLUTE EOSINOPHILS (test code = 45900970) 183 cells/uL See_Comment N [Automated [employer]] The system which generated this result transmitted reference range: 15-500 cells/uL. The reference range was not used to interpret this result as normal/abnormal. ABSOLUTE LYMPHOCYTES (test code = 96025407) 3793 cells/uL See_Comment N [Automated messa ge] The system which generated this result transmitted reference range: 850-3900 cells/uL. The reference range was not used to interpret this result as normal/abnormal. ABSOLUTE MONOCYTES (test code = 35016825) 539 cells/uL See_Comment N [Automated messa ge] The system which generated this result transmitted reference range: 200-950 cells/uL. The reference range was not used to interpret this result as normal/abnormal. ABSOLUTE NEUTROPHILS (test code = 90716087) 4159 cells/uL See_Comment N [Automated messa ge] The system which generated this result transmitted reference range: 3827-2059 cells/uL. The reference range was not used to interpret this result as normal/abnormal. BASOPHILS (test code = 54348749) 0.3 % N EOSINOPHILS (test code = 88480078) 2.1 % N HEMATOCRIT (test code = 66452157) 38.6 % See_Comment N [Automated mess age] The system which generated this result transmitted reference range: 35.0-45.0 %. The reference range was not used to interpret this result as normal/abnormal. HEMOGLOBIN (test code = 86534267) 12.4 g/dL See_Comment N [Automated mess age] The system which generated this result transmitted reference range: 11.7-15.5 g/dL. The reference range was not used to interpret this result as normal/abnormal. LYMPHOCYTES (test code = 14662495) 43.6 % N MCH (test code = 93885367) 29.5 pg See_Comment N [Automated messa ge] The system which generated this result transmitted reference range: 27.0-33.0 pg. The reference range was not used to interpret this result as normal/abnormal. MCHC (test code = 32534839) 32.1 g/dL See_Comment N [Automated messa ge] The system which generated this result transmitted reference range: 32.0-36.0 g/dL. The reference range was not used to interpret this result as normal/abnormal. MCV (test code = 69541209) 91.7 fL See_Comment N [Automated messa ge] The system which generated this result transmitted reference range: 80.0-100.0 fL. The reference range was not used to interpret this result as normal/abnormal. MONOCYTES (test code = 80686158) 6.2 % N MPV (test code = 33595148) 8.4 fL See_Comment N [Automated messa ge] The system which generated this result transmitted reference range: 7.5-12.5 fL. The reference range was not used to interpret this result as normal/abnormal. NEUTROPHILS (test code = 88398308) 47.8 % N PLATELET COUNT (test code = 38313046) 460 Thousand/uL See_Comment H [Automated message] The system which generated this result transmitted reference range: 140-400 Thousand/uL. The reference range was not used to interpret this result as normal/abnormal. RDW (test code = 43373587) 13.2 % See_Comment N [Automated messa ge] The system which generated this result transmitted reference range: 11.0-15.0 %. The reference range was not used to interpret this result as normal/abnormal. RED BLOOD CELL COUNT (test code = 30020953) 4.21 Million/uL See_Comment N [Automated message] The system which generated this result transmitted reference range: 3.80-5.10 Million/uL. The reference range was not used to interpret this result as normal/abnormal. WHITE BLOOD CELL COUNT (test code = 39903937) 8.7 Thousand/uL See_Comment N [Automated message] The system which generated this result transmitted reference range: 3.8-10.8 Thousand/uL. The reference range was not used to interpret this result as normal/abnormal. C-REACTIVE PROTEIN (test code = 51818808) <5.0 mg/L See_Comment N [Automated messa ge] The system which generated this result transmitted reference range: <8.0 mg/L. The reference range was not used to interpret this result as normal/abnormal. % SATURATION (test code = 09793435) 30 % (calc) See_Comment N [Automated mess age] The system which generated this result transmitted reference range: 16-45 % (calc). The reference range was not used to interpret this result as normal/abnormal. FERRITIN (test code = 61002365) 26 ng/mL See_Comment N [Automated messa ge] The system which generated this result transmitted reference range: 16-154 ng/mL. The reference range was not used to interpret this result as normal/abnormal. IRON BINDING CAPACITY (test code = 50120720) 417 mcg/dL (calc) See_Comment N [Automated message] The system which generated this result transmitted reference range: 250-450 mcg/dL (calc). The reference range was not used to interpret this result as normal/abnormal. IRON, TOTAL (test code = 42652418) 126 mcg/dL See_Comment N [Automated mess age] The system which generated this result transmitted reference range: 40-190 mcg/dL. The reference range was not used to interpret this result as normal/abnormal. ALBUMIN (test code = 69420992) 4.8 g/dL See_Comment N [Automated messa ge] The system which generated this result transmitted reference range: 3.6-5.1 g/dL. The reference range was not used to interpret this result as normal/abnormal. ALBUMIN/GLOBULIN RATIO (test code = 50626912) 2.5 (calc) See_Comment N [Automated messa ge] The system which generated this result transmitted reference range: 1.0-2.5 (calc). The reference range was not used to interpret this result as normal/abnormal. ALKALINE PHOSPHATASE (test code = 76132840) 33 U/L See_Comment N [Automated messa ge] The system which generated this result transmitted reference range: 31-125 U/L. The reference range was not used to interpret this result as normal/abnormal. ALT (test code = 80797992) 13 U/L See_Comment N [Automated messa ge] The system which generated this result transmitted reference range: 6-29 U/L. The reference range was not used to interpret this result as normal/abnormal. AST (test code = 52378600) 13 U/L See_Comment N [Automated messa ge] The system which generated this result transmitted reference range: 10-30 U/L. The reference range was not used to interpret this result as normal/abnormal. BILIRUBIN, TOTAL (test code = 31337020) 0.4 mg/dL See_Comment N [Automated messa ge] The system which generated this result transmitted reference range: 0.2-1.2 mg/dL. The reference range was not used to interpret this result as normal/abnormal. BUN/CREATININE RATIO (test code = 80519575) SEE NOTE: (calc) See_Comment [Automated message] The system which generated this result transmitted reference range: 6-22 (calc). The reference range was not used to interpret this result as normal/abnormal. CALCIUM (test code = 50491369) 9.4 mg/dL See_Comment N [Automated messa ge] The system which generated this result transmitted reference range: 8.6-10.2 mg/dL. The reference range was not used to interpret this result as normal/abnormal. CARBON DIOXIDE (test code = 52169977) 23 mmol/L See_Comment N [Automated mess age] The system which generated this result transmitted reference range: 20-32 mmol/L. The reference range was not used to interpret this result as normal/abnormal. CHLORIDE (test code = 26104105) 105 mmol/L See_Comment N [Automated messa ge] The system which generated this result transmitted reference range: 98-110 mmol/L. The reference range was not used to interpret this result as normal/abnormal. CREATININE (test code = 02851700) 0.82 mg/dL See_Comment N [Automated mess age] The system which generated this result transmitted reference range: 0.50-0.99 mg/dL. The reference range was not used to interpret this result as normal/abnormal. GLOBULIN (test code = 08852544) 1.9 g/dL (calc) See_Comment N [Automated message] The system which generated this result transmitted reference range: 1.9-3.7 g/dL (calc). The reference range was not used to interpret this result as normal/abnormal. GLUCOSE (test code = 05142650) 90 mg/dL See_Comment N [Automated messa ge] The system which generated this result transmitted reference range: 65-139 mg/dL. The reference range was not used to interpret this result as normal/abnormal. POTASSIUM (test code = 53678453) 3.9 mmol/L See_Comment N [Automated messa ge] The system which generated this result transmitted reference range: 3.5-5.3 mmol/L. The reference range was not used to interpret this result as normal/abnormal. PROTEIN, TOTAL (test code = 12967429) 6.7 g/dL See_Comment N [Automated mess age] The system which generated this result transmitted reference range: 6.1-8.1 g/dL. The reference range was not used to interpret this result as normal/abnormal. SODIUM (test code = 14544537) 136 mmol/L See_Comment N [Automated messa ge] The system which generated this result transmitted reference range: 135-146 mmol/L. The reference range was not used to interpret this result as normal/abnormal. UREA NITROGEN (BUN) (test code = 42096436) 14 mg/dL See_Comment N [Automated messa ge] The system which generated this result transmitted reference range: 7-25 mg/dL. The reference range was not used to interpret this result as normal/abnormal. FOLATE, SERUM (test code = 20354264) 14.5 ng/mL N VITAMIN B12 (test code = 15301579) 459 pg/mL See_Comment N [Automated mess age] The system which generated this result transmitted reference range: 200-1100 pg/mL. The reference range was not used to interpret this result as normal/abnormal. Notes Date/Time Note Provider Source Israel Narayanan [facility]
[2025-05-20 13:14] LABS: Absolute Lymphocytes (CBC) 4.6 K/uL (0.7-4.9); Hematocrit 41.2 % (36.0-45.0); Hemoglobin 13.8 g/dL (12.0-15.0); MCH 29.4 pg (27.0-35.0); MCHC 33.4 g/dL (32.0-36.0); MCV 88.1 fL (80-100); MPV 6.4 fL (7.6-11.3); Nucleated RBC Absolute Count 0.0 (0-0); Nucleated Red Blood Cells % 0.0 % (0-0); RBC Red Blood Cell Count 4.68 M/uL (3.86-4.86); White Blood Count 17.10 thou/uL (4.3-10.9)
[2025-05-20 13:36] LABS: ALT/SGPT 27 U/L (13-56); Albumin 4.1 g/dL (3.4-5.0); Albumin/Globulin Ratio 1.3 (1.1-1.8); Alkaline Phosphatase 43 U/L (45-117); Anion Gap 10.7 mEq/L (5.0-15.0); BUN Blood Urea Nitrogen 24 mg/dL (7-18); Globulin 3.1 g/dL (2.3-3.5); Glucose Level 92 mg/dL (74-106); Potassium 3.7 mEq/L (3.5-5.1)
[2025-05-20 13:37] LABS: AST/SGOT < 10 U/L (15-37)
--- NOTE | 2025-05-20 14:20 | RAD REPORT ---
EXAM: Soft Tissue Neck W/Contr INDICATION: Neck pain. Sinusitis TECHNIQUE: Helical CT examination of the neck zegu241 cc Isovue-300 IV contrast. Sagittal and coronal reformations were generated. This exam was performed according to our departmental dose-optimization program, which includes automated exposure control, adjustment of the mA and/or kV according to patient size and/or use of iterative reconstruction technique. COMPARISON: None. FINDINGS: The pharynx, larynx and subglottic trachea are unremarkable Parotid, submandibular and thyroid glands appear normal. No lymphadenopathy seen. No fluid within the visualized sinuses/mastoids. IMPRESSION: Unremarkable exam
--- NOTE | 2025-05-20 15:02 | ER ---
Nurse's Notes [facility] Name: Lara Perea Age: 40 yrs Sex: Female : 1985 Arrival Date: 05/20/2025 Time: 12:01 Bed 10 Private MD: Diagnosis: Chronic frontal sinusitis Presentation: 05/20 12:20 Chief complaint: Patient states: has been sick since April 05, started with iw COVID/bronchitis , sinus infection, eh ear infxn, was sent to ENT and prescribed 5th abx , she is having sinus pain and pressure , swelling along her face and eyebrows and throat , intermittent fever. Coronavirus screen: At this time, the client does not indicate any symptoms associated with coronavirus-19. Ebola Screen: No symptoms or risks identified at this time. Initial Sepsis Screen: Does the patient meet any 2 criteria? HR > 90 bpm. Does the patient have a suspected source of infection? No. Patient's initial sepsis screen is negative. Risk Assessment: Do you want to hurt yourself or someone else? Patient reports no desire to harm self or others. 12:20 Method Of Arrival: Ambulatory iw 12:21 Onset of symptoms was April 2025. iw 12:21 Acuity: PHILIP 3 iw 12:22 Note she was on a zpack, amoxicillin, doxycycline , Levaquin, currently on cefdinir and iw was on prednisone. HOSPITAL INTERNSHIP: 15:26 Not kj2 Historical: - Allergies: 12:22 No Known Allergies; iw - PMHx: 12:23 RA; iw - Immunization history:: Adult Immunizations unknown. - Infectious Disease History:: Denies. - Social history:: Smoking status: unknown. Screenin:25 [facility] ED Fall Risk Assessment (Adult) History of falling in the last 3 months, kj2 including since admission No falls in past 3 months (0 pts) Confusion or Disorientation No (0 pts) Intoxicated or Sedated No (0 pts) Impaired Gait No (0 pts) Mobility Assist Device Used No (0 pt) Altered Elimination No (0 pt) Score/Fall Risk Level 0 - 2 = Low Risk Maintained a safe environment, Hourly rounding (assess needs \T\ fall precautionary measures) done. Abuse screen: Denies threats or abuse. Denies injuries from another. Nutritional screening: No deficits noted. Tuberculosis screening: No symptoms or risk factors identified. Assessment: 13:24 General: Appears in no apparent distress. Behavior is calm, cooperative. Pain: kj2 Complains of pain in bilat ears Pain currently is 5 out of 10 on a pain scale. Neuro: Level of Consciousness is awake, alert, obeys commands, Oriented to person, place, time, situation. Cardiovascular: Patient's skin is warm and dry. Respiratory: Airway is patent Respiratory effort is unlabored. GI: No signs and/or symptoms were reported involving the gastrointestinal system. : No signs and/or symptoms were reported regarding the genitourinary system. 14:20 Reassessment: Patient appears in no apparent distress at this time. Patient and/or kj2 family updated on plan of care and expected duration. Pain level reassessed. Patient is alert, oriented x 3, equal unlabored respirations, skin warm/dry/pink. 15:21 Reassessment: Patient appears in no apparent distress at this time. Patient and/or kj2 family updated on plan of care and expected duration. Pain level reassessed. Patient is alert, oriented x 3, equal unlabored respirations, skin warm/dry/pink. Vital Signs: 12:19 BP 162 / 101; Pulse 103; Resp 19; Temp 98.6(O); Pulse Ox 100% on R/A; iw 13:30 BP 155 / 96; Pulse 100; Resp 20; Pulse Ox 100% on R/A; kj2 14:30 BP 158 / 96; Pulse 101; Resp 18; Pulse Ox 100% on R/A; kj2 15:24 BP 154 / 90; Pulse 98; Resp 20; Pulse Ox 100% on R/A; kj2 ED Course: 12:03 Patient arrived in ED. mr 12:03 Jaxson Cosme FNP-C is PHCP. dr5 12:03 Jorge Alberto Hall DO is Attending Physician. dr5 12:22 Triage completed. iw 12:23 Arm band placed on. iw 13:08 Test, Serum Sent. bc6 13:08 CMP Sent. bc6 13:08 CBC with Diff Sent. bc6 13:08 Initial lab(s) drawn, by wa, sent to lab. Inserted saline lock: 20 gauge in left bc6 antecubital area, using aseptic technique. Blood collected. Flushed with 10 mL NS. 13:23 Anjel, Magda, RN is Primary Nurse. kj2 13:26 Patient has correct armband on for positive identification. Bed in low position. Call kj2 light in reach. Provided Education on: call light. 13:58 Soft Tissue Neck W/Contr In Process Unspecified. EDMS 15:27 No provider procedures requiring assistance completed. IV discontinued, intact, kj2 bleeding controlled, No redness/swelling at site. Pressure dressing applied. Administered Medications: No medications were administered Medication: 13:25 VIS not applicable for this client. kj2 Outcome: 15:01 Discharge ordered by . dr5 15:27 Discharged to home ambulatory, kj2 15:27 Condition: stable 15:27 Discharge instructions given to patient, Instructed on discharge instructions, follow up and referral plans. Demonstrated understanding of instructions, follow-up care, 15:28 Patient left the ED. kj2 Signatures: Dispatcher [employer] EDMA MalikJing, Reg Reg mr Dior Gaming, RN RN iw Daya Abbott bc6 Magda Hobbs, RN RN kj2 Jaxson Cosme, RECORDS CLERK-C RECORDS CLERK-Cdr5 Corrections: (The following items were deleted from the chart) 12:22 12:19 Temp 98.6F Oral; iw iw 12:22 12:20 Chief complaint: Patient states: has been sick since April 05, started with iw COVID/bronchitis , sinus infection, eh ear infxn, was sent to ENT and prescribed 5th abx iw 12:23 12:22 Note she was on a zpack, amoxicillin, doxycycline , currently on cefdinir iw iw
--- NOTE | 2025-05-20 15:02 | EDPHYS ---
Physician Documentation [facility] Name: Lara Perea Age: 40 yrs Sex: Female : 1985 Arrival Date: 05/20/2025 Time: 12:01 Bed 10 Private MD: ED Physician Jorge Alberto Hall HPI: 05/20 18:19 This 40 yrs old Female presents to ER via Ambulatory with complaints of Sinus dr5 Congestion. 18:19 The patient or guardian reports cough, that is intermittent. Onset: The dr5 symptoms/episode began/occurred 7 week(s) ago. The patient has been recently seen by a physician: an ENT specialist. Patient is a 40-year-old female with history of RA coming in with 7 weeks of sinus pressure and pain. Patient reports she is currently on steroids and antibiotics. Patient states that she has been through 5 different [address] and saw Dr[address] Bejarano last week. Patient reports that Dr. Bejarano wants to have a CT scan of her sinuses but is unable to wait to have it completed due to pain.. BACKROOM ASSOCIATE: 15:26 Not kj2 Historical: - Allergies: 12:22 No Known Allergies; iw - PMHx: 12:23 RA; iw - Immunization history:: Adult Immunizations unknown. - Infectious Disease History:: Denies. - Social history:: Smoking status: unknown. ROS: 18:19 Constitutional: as per hpi dr5 Exam: 18:19 Constitutional: This is a well developed, well nourished patient who is awake, alert, dr5 and in no acute distress. Head/Face: Normocephalic, atraumatic. ENT: Nares patent. No nasal discharge, no septal abnormalities noted. Tympanic membranes are normal and external auditory canals are clear. Oropharynx with no redness, swelling, or masses, exudates, or evidence of obstruction, uvula midline. Mucous membranes moist. Neck: Trachea midline, no thyromegaly or masses palpated, and no cervical lymphadenopathy. Supple, full range of motion without nuchal rigidity, or vertebral point tenderness. No Meningismus. Chest/axilla: Normal chest wall appearance and motion. Nontender with no deformity. No lesions are appreciated. Cardiovascular: Regular rate and rhythm with a normal S1 and S2. Normal PMI, no JVD. No pulse deficits. Respiratory: Lungs have equal breath sounds bilaterally, clear to auscultation. No rales, rhonchi or wheezes noted. No increased work of breathing, no retractions or nasal flaring. Back: No spinal tenderness. No costovertebral tenderness. Full range of motion. Skin: Warm, dry with normal turgor. Normal color with no rashes, no lesions, and no evidence of cellulitis. MS/ Extremity: Pulses equal, no cyanosis. Neurovascular intact. Full, normal range of motion. Neuro: Awake and alert, GCS 15, oriented to person, place, time, and situation. Cranial nerves II-XII grossly intact. Motor strength 5/5 in all extremities. Sensory grossly intact. Cerebellar exam normal. Normal gait. 18:19 Head/face: Sinus tenderness, that is mild, is located over the right frontal sinus, left frontal sinus, right maxillary sinus and left maxillary sinus, Vital Signs: 12:19 BP 162 / 101; Pulse 103; Resp 19; Temp 98.6(O); Pulse Ox 100% on R/A; iw 13:30 BP 155 / 96; Pulse 100; Resp 20; Pulse Ox 100% on R/A; kj2 14:30 BP 158 / 96; Pulse 101; Resp 18; Pulse Ox 100% on R/A; kj2 15:24 BP 154 / 90; Pulse 98; Resp 20; Pulse Ox 100% on R/A; kj2 MDM: 12:04 Medical Screening Exam initiated dr5 18:19 Differential Diagnosis: Obstructed Airway Upper Respiratory Infection Sinusitis Viral dr5 Syndrome. Data reviewed: vital signs, nurses notes, lab test result(s), CBC, white blood cell count, hemoglobin, hematocrit, platelets, electrolytes, sodium, potassium, chloride, serum bicarbonate, BUN, creatinine, serum glucose, UPT: radiologic studies, CT scan. Consideration of Admission/Observation Escalation of care including admission/observation considered. Escalation considered patient found to have abscess or abnormality on CT scan.. I considered the following discharge prescriptions or medication management in the emergency department Steroid injection not given due to patient having it last week. Patient was confused as to why she did not receive IV antibiotics. I explained to her that due to patient not having abnormality on CT scan that does not show acute sinusitis, will not give antibiotics at this time. Explained that patient does not have acute sinusitis on CT scan and antibiotics would not be beneficial to her at this time.. Care significantly affected by the following chronic conditions: Rheumatoid arthritis. Care significantly affected by the following Social Determinants of Health: Poor access to healthcare and/or lack of insurance, Poor access to transportation, Problems related to employment. Counseling: I had a detailed discussion with the patient and/or guardian regarding the historical points, exam findings, and any diagnostic results supporting the discharge/admit diagnosis, the presence of at least one elevated blood pressure reading (>120/80) during this emergency department visit, lab results, radiology results, the need for outpatient follow up, for definitive care, an ENT specialist, to return to the emergency department if symptoms worsen or persist or if there are any questions or concerns that arise at home. Special discussion: I have referred the patient to see his PCP for further evaluation of high blood pressure. I discussed with the patient/guardian in detail that at this point there is no indication for admission to the hospital. It is understood, however, that if the symptoms persist or worsen the patient needs to return immediately for re-evaluation. Based on the history and exam findings, there is no indication for further emergent testing or inpatient evaluation. I discussed with the patient/guardian the need to see the ENT specialist for further evaluation of the symptoms. ED course: Explained the patient does not need IV antibiotics at this time. Recommended patient follow-up with Dr. Bejarano. Patient reports that she is actually able to go home from the ER to her office. I printed out labs and CT scan to give the patient to take with her. Recommended holding off on starting cefdinir again until cleared by ENT. All questions answered. Strict ER precautions given. Patient is agreeable to plan. 05/20 12:32 Order name: CBC with Diff; Complete Time: 13:31 dr5 05/20 12:32 Order name: CMP; Complete Time: 13:47 dr5 05/20 12:32 Order name: Test, Serum; Complete Time: 13:47 dr5 05/20 13:57 Order name: Soft Tissue Neck W/Contr; Complete Time: 14:22 EDMS Administered Medications: No medications were administered Disposition: 20:04 I was immediately available on-site in the Emergency Department for consultation in the ms3 care of the patient. Disposition Summary: 05/20/25 15:01 Discharge Ordered Notes: Location: Home dr5 Condition: Stable dr5 Diagnosis - Chronic frontal sinusitis dr5 Followup: dr5 - With: Emergency Department - When: As needed - Reason: Worsening of condition Followup: dr5 - With: Private Physician - When: Today - Reason: Recheck today's complaints, Continuance of care, Re-evaluation by your physician Discharge Instructions: - Discharge Summary Sheet dr5 - Sinusitis, Adult dr5 Forms: - Work release form dr5 - Medication Reconciliation Form dr5 - Patient Portal Instructions dr5 - Leadership Thank You Letter dr5 Signatures: Dispatcher [employer] EDDior Kelly, RN RN iw Jorge Alberto Hall DO DO ms3 Magda Hobbs RN RN kj2 Jaxson Cosme, MALT LOADER-C MALT LOADER-Cdr5 Corrections: (The following items were deleted from the chart) 13:57 12:32 Maxillofacial W/Cont+CT.RAD.BRZ ordered. [facility] EDMO
[2025-05-20 21:07] VITALS: TEMP 98.6; O2SAT 100
[2025-05-20 21:13] VITALS: BP 154/90
== END 2025-05-20 15:28 | disposition home or self-care (01) ==
LOC: ER 12:01
DX: J32.1 Chronic frontal sinusitis (principal)
CPT/HCPCS: 85025; 36415; 84703; 80053; 70491; 99284; Q9967